=== PATIENT | female | born 1985 | race African-American/Black ===

== ENCOUNTER 2018-02-21 11:00 | Emergency (ER) | payer OTHER ==
[~2018-02-21] VITALS: Ht 167.6 cm; Wt 78.5 kg
[~2018-02-21 11:00] MED LIST: AMOXIL500 MG PO; CIPRO500 M1 PO; IBUPROFEN800 MG PO; MEDROL DOSEPAK1 PAC PO; MELOXICAM15 M1 PO; NOVAPLUS V0.09 MG/Ac INH; PERCOCET 325 MG1 TA2 PO; PERCOCET 5-3251 EACH PO; PREDNISONE 20MG20 MG PO; ROBITUSSIN W/CO10 ML PO; TESSALON PERLE100 MG PO; VICODIN 5-3001 EACH PO; ZITHROMAX Z-PA250 M1 PO
[2018-02-21 11:04] VITALS: BP 139/89
--- NOTE | 2018-02-21 11:08 | ED NECK/BACK PAIN COMPLAINT ---
History of Present Illness General Chief Complaint: General Adult Stated Complaint: MED REFILL, BACK PAIN. Source: patient, old records Exam Limitations: no limitations Vital Signs & Intake/Output Vital Signs & Intake/Output Vital Signs Date Time Temp Pulse Resp B/P B/P Pulse O2 O2 Flow FiO2 Mean Ox Delivery Rate 02/21 1104 97.4 90 20 139/89 96 Room Air Allergies Coded Allergies: NO KNOWN ALLERGIES (08/20/15) Reconcile Medications Albuterol Sulfate (Ventolin Hfa) 90 MCG HFA.AER.AD 1-2 PUFF INH Q4P PRN SOB/ COUGH Albuterol Sulfate (Ventolin Hfa) 0.09 MG/Actuation WIL 1-2 PUFF INH Q6P PRN SOB Amoxicillin (Amoxil) 500 MG CAP 1 TAB PO TID INFECTION Azithromycin (Zithromax Z-Filipe) 250 MG CAP 1 TAB PO AD BRONCHITISI Azithromycin (Zithromax Z-Filipe) 250 MG CAP 1 DP PO AD BRONCHITIS 2 the first day followed by 1 for days 2-5 Benzonatate (Tessalon Perle) 100 MG CAPSULE 1 TAB PO 4 TIMES/DAY PRN COUGH Ciprofloxacin HCl (Cipro) 500 MG TABLET 1 TAB PO BID uti Hydrocodone/Acetaminophen (Vicodin 5-300 MG Tablet) 5 MG-300 MG TABLET 1 TAB PO BID PRN PAIN Ibuprofen 800 MG TAB 1 TAB PO 4 TIMES/DAY PRN PAIN Meloxicam 15 MG TABLET 1 TAB PO DAILY PRN PAIN Methylprednisolone. (Medrol) 4 MG TAB.DS.PK 1 TAB PO AD BRONCHITIS Oxycodone HCl/Acetaminophen (Percocet 5-325 MG Tablet) 5 MG-325 MG TABLET 1-2 TAB PO BID pain OXYCODONE HCL/ACETAMINOPHEN (Percocet 5-325 MG Tablet) 325 MG/5 MG TAB 1-2 TAB PO Q4-6 PRN PRN PAIN eight... [id number] Oxycodone HCl/Acetaminophen (Percocet 5-325 MG Tablet) 5 MG-325 MG TABLET 1 TAB PO BID pain Prednisone 20 MG TABLET 2 TAB PO DAILY PHARYNGITIS Prednisone 20 MG TAB 2 TAB PO DAILY INFLAMMATION Robitussin AC (Guaifenesin-Codeine Syrup) 200 MG-20 MG/10 ML LIQUID 5 ML PO Q6P PRN COUGH Robitussin AC (Guaifenesin-Codeine Syrup) 10 ML UDC 5-10 ML PO Q6P PRN COUGH Triage Note: PT TO ED C/O "MY BACK IS KILLING ME". HAS BEEN TAKING PERCOCET WITH SOME RELIEF. HAS MRI SCHEDULED FOR FRIDAY. Triage Nurses Notes Reviewed? yes Onset: Abrupt Duration: waxing and waning, months Timing: recent history Quality/Severity: moderate, severe Location: lumbar spine : No Patient currently breastfeeds: No HPI: 32 year female comes into the emergency room for low back pain. Patient reports she is and this pain for months intermittently. She reports feeling better with percocet. She was here recently. The pain radiates down into her buttocks bilaterally. Denies any urinary or bowel dysfunction. Pain is consistent with previous pain. She has an MRI due on Friday. She comes in for further evaluation. She reports that the Percocet has helped hold the pain down the make it tolerable. (Garrett Suarez) Past History Travel History Traveled to [place] past 21 day No Medical History Any Pertinent Medical History? 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 No (Garrett Suarez) Review of Systems Review of Systems Constitutional: Reports: no symptoms. Eyes: Reports: no symptoms. Ears, Nose, Throat, Mouth: Reports: no symptoms. Respiratory: Reports: no symptoms. Cardiovascular: Reports: no symptoms. Gastrointestinal/Abdominal: Reports: no symptoms. Musculoskeletal: Reports: see HPI. Skin: Reports: no symptoms. Neurological/Psychological: Reports: no symptoms. All Other Systems: Reviewed and Negative (Garrett Suarez) Physical Exam Physical Exam General Appearance: well developed/nourished, mild distress Head: atraumatic Eyes: Bilateral: normal appearance. Ears, Nose, Throat, Mouth: hearing grossly normal, moist mucous membrane Neck: normal inspection, full range of motion Respiratory: normal breath sounds, no respiratory distress Back: normal inspection Extremities: normal range of motion Motor: Deficit L4 Right: No Deficit L4 Left: No Deficit L5 Right: No Deficit L5 Left: No Deficit S1 Right: No Deficit S1 Right: No Neurologic/Psych: awake, alert, oriented x 3, normal mood/affect Skin: intact, normal color, warm/dry Core Measures CVA/TIA Diagnosis: No (Garrett Suarez) Progress Differential Diagnosis: cauda equina syn, herniated disc, myofascial strain, sciatica Plan of Care: See below Comments: 02/21/2018 11:39:42 AM Patient clinically looks well. Patient is no apparent distress. Patient is nontoxic-appearing. Pain is consistent with previous back pain. Patient has been seen here for the same before. Requesting a refill on Percocet. No urinary bowel dysfunction. (Garrett Suarez) Departure Departure Disposition: HOME OR SELF CARE Condition: Stable Clinical Impression Primary Impression: Back pain Referrals: Macrina Li MD (PCP/Family) Additional Instructions: Take Percocet for pain. Follow-up with your PCP. Return if any concerns worsening symptoms. Please go over all results of today's visit with your primary care doctor. Contact your primary care doctor to let them know you were here in the emergency room. There may be nonspecific findings which may not be related to your visit today here in the emergency room but may require further evaluation and chronic monitoring by your primary care doctor. If you had a laceration today the chance of foreign body always remains. You should follow-up with your primary care doctor for recheck in 3-5 days for a wound check. If you had an x-ray done there is a chance that a fracture could have been missed on initial read and you should follow-up with your primary care doctor for repeat x-rays if symptoms persist. If your blood pressure was elevated here in the emergency room please have rechecked by [facility] [place] [place] primary care doctor within the next 48. If you were prescribed a narcotic here in the emergency room or any type of controlled substances you're not allowed to drive while taking this medication or operate any type of heavy machinery. Narcotics can make you feel lightheaded dizziness nausea and can cause constipation. You may need to bean picker a stool softener. Thank you for choosing [facility] emergency room. Please return to the emergency room immediately if you have any other concerns worsening of symptoms. Departure Forms: Customer Survey General Discharge Information Prescriptions: Current Visit Scripts Oxycodone HCl/Acetaminophen (Percocet 5-325 MG Tablet) 1-2 TAB PO BID #10 TAB (Garrett Suarez) PA/SQUAD BOSS Co-Sign Statement Statement: ED Attending supervision documentation- [] I saw and evaluated the patient. I have also reviewed all the pertinent lab results and diagnostic results. I agree with the findings and the plan of care as documented in the PA's/SQUAD BOSS's documentation. [X] I have reviewed the ED Record and agree with the PA's/SQUAD BOSS's documentation. [] Additions or exceptions (if any) to the PAs/SQUAD BOSS's note and plan are summarized below: [] (Lucinda CARMICHAEL,Reagan Horne)
[2018-02-21] MEDS ORDERED: PERCOCET 5-3251 EACH PO (11:10)
== END 2018-02-21 11:15 ==
LOC: ERH 11:00
DX: M54.5 Low back pain (principal)

== ENCOUNTER 2018-03-26 22:03 | Emergency (ER) | payer OTHER ==
[~2018-03-26] VITALS: Ht 167.6 cm; Wt 78.0 kg
--- NOTE | 2018-03-27 00:19 | ED GI/GU/ABDOMINAL COMPLAINT ---
History of Present Illness General Chief Complaint: General Adult Stated Complaint: "ABD PAIN BACK PAIN, PAINFULL URINATION,NAUSEA" Source: patient, old records, friend Exam Limitations: no limitations Vital Signs & Intake/Output Vital Signs & Intake/Output Vital Signs Date Time Temp Pulse Resp B/P B/P Pulse O2 O2 Flow FiO2 Mean Ox Delivery Rate 03/26 2215 98.4 70 18 106/70 98 Room Air ED Intake and Output 03/27 0000 03/26 1200 Intake Total 0 Output Total Balance 0 Intake, Oral 0 Patient 172 lb Weight Weight Reported by Patient Measurement Method Allergies Coded Allergies: NO KNOWN ALLERGIES (08/20/15) Reconcile Medications No Known Home Medications Triage Note: PT TO TRIAGE C/O LOWER ABD PAIN AND FREQ URINATION SINCE LAST NIGHT, PT STATES FEELS SIMILAR TO UTI IN THE PAST.PT REPORTS NAUSEA LAST NIGHT THAT HAS PASSED. Triage Nurses Notes Reviewed? yes LMP (ages 10-50): unknown ? n Is pt currently ? No Onset: Yesterday Duration: day(s):, continues in ED, intermittent Timing: recent history Quality/Severity: aching, cramping, mild, moderate Location: suprapubic Radiation: no radiation Activities at Onset: rest Prior Abdominal Problems: similar symptoms Sexually Active: Yes Last Time You Were Sexual: less than 2 months ago Sexual Orientation: Heterosexual Use of Protection: No No Modifying Factors: none Associated Symptoms: dysuria, polyuria, urinary frequency HPI: 1 day prior to admission patient complains of recurrent dysuria suprapubic discomfort urinary frequency. She denies fever chills nausea vomiting diarrhea chest pain cough shortness breath headache rash bleeding vaginal discharge. Past History Travel History Traveled to [place] past 21 day No Medical History Any Pertinent Medical History? 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 No Review of Systems Review of Systems Constitutional: Reports: no symptoms. EENTM: Reports: no symptoms. Respiratory: Reports: no symptoms. Cardiovascular: Reports: no symptoms. GI: Reports: no symptoms. Genitourinary: Reports: see HPI, dysuria, frequency, urgency. Musculoskeletal: Reports: no symptoms. Skin: Reports: no symptoms. Neurological/Psychological: Reports: no symptoms. Hematologic/Endocrine: Reports: no symptoms. Immunologic/Allergic: Reports: no symptoms. All Other Systems: Reviewed and Negative Physical Exam Physical Exam General Appearance: well developed/nourished, alert, awake, anxious Head: atraumatic, normal appearance Eyes: Bilateral: normal appearance, PERRL, EOMI, normal inspection. Ears, Nose, Throat, Mouth: hearing grossly normal, moist mucous membrane Neck: normal inspection, supple, full range of motion, normal alignment Respiratory: normal breath sounds, chest non-tender, no respiratory distress, quiet respiration, lungs clear Cardiovascular: regular rate/rhythm, normal peripheral pulses, norml femoral pulses equa Peripheral Pulses: 4+ carotid (R), 4+ carotid (L) Gastrointestinal: normal bowel sounds, soft, non-tender, no organomegaly Back: normal inspection, normal range of motion Extremities: normal range of motion, no ligament instability Neurologic/Psych: no motor/sensory deficits, awake, alert, oriented x 3, normal gait, normal mood/affect, 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 No Sepsis Present: No Sepsis Focused Exam Completed? No Progress Differential Diagnosis: UTI/pyelo Plan of Care: Orders Procedure Date/time Status Add-on Test (ER Only) 03/27 0005 Active URINALYSIS 03/26 2217 Complete Current Medications Sig/Cristian Start time Last Medication Dose Stop Time Status Admin Nitrofurantoin 50 MG ONCE ONE 03/27 30 UNVr (Macrodantin 50MG 03/27 31 Cap) Phenazopyridine HCl 200 MG ONCE ONE 03/27 30 UNVr (Pyridium) 03/27 31 Laboratory Tests 03/26/18 2230: Urine Color YEL, Urine Clarity HAZY H, Urine pH 6.0, Ur Specific Cochran >= 1.030, Urine Protein NEG, Urine Ketones NEG, Urine Nitrite NEG, Urine Bilirubin NEG, Urine Urobilinogen 0.2, Ur Leukocyte Esterase MOD H, Ur Microscopic SEDIMENT EXAMINED, Urine RBC 1-3, Urine WBC 10-15 H, Ur Epithelial Cells MOD H , Urine Bacteria MOD H, Urine Mucus MOD H, Urine Hemoglobin MOD H, Urine Glucose NEG Initial ED EKG: none Departure Departure Time of Disposition: 22 Disposition: HOME OR SELF CARE Condition: Stable Clinical Impression Primary Impression: Cystitis Referrals: Macrina Li MD (PCP/Family) Departure Forms: Customer Survey General Discharge Information Prescriptions: Current Visit Scripts Nitrofurantoin Monohyd/M-Cryst (Macrobid 100 MG Capsule) 1 CAP PO BID #14 CAP with food Phenazopyridine HCl (Pyridium) 1 TAB PO TID #9 TAB
[2018-03-27 00:21] VITALS: BP 110/65
[2018-03-27] MEDS ORDERED: MACROBID 100 M100 MG PO (00:24)
[2018-03-27] MEDS ORDERED: PYRIDIUM200 M1 PO (00:24)
== END 2018-03-27 00:42 ==
LOC: ERH 22:03
DX: N30.90 Cystitis, unspecified without hematuria (principal)
CPT/HCPCS: 81001; 87086